=== PATIENT | female | born 1970 | race Caucasian/White ===

== ENCOUNTER 2016-09-16 08:22 | Emergency (ER) | payer OTHER ==
[~2016-09-16] VITALS: Ht 167.6 cm; Wt 65.3 kg
[~2016-09-16 08:22] MED LIST: FLEXERIL10 MG PO; MOTRIN800 MG PO; MULTIVITAMIN1 EAC2 PO
[2016-09-16 09:40] LABS: HEMATOCRIT 43.1 % (36.0-46.0); MCH 32.9 PG (29.0-34.0); MCHC 34.8 G/DL (30.0-36.0); MCV 94.5 FL (83-99); RBC DIS.WIDTH-CV 11.2 % (11.8-14.6); RBC DIS.WIDTH-SD 38.8 % (39-53); RED BLOOD COUNT 4.56 M/uL (3.80-5.20)
[2016-09-16 09:50] LABS: ADD MIUA? YES; BILIRUBIN NEGATIVE; BLOOD NEGATIVE; COLOR STRAW ((YELLOW)); GLUCOSE (STRIP) NEGATIVE; KETONES NEGATIVE; LEUKOCYTES TRACE; NITRITE NEGATIVE; PROTEIN (STRIP) NEGATIVE; SPECIFIC GRAVITY 1.006 (1.000-1.030); UROBILINOGEN 0.2 MG/DL (0.2-1.0)
[2016-09-16 09:52] LABS: CHLORIDE 106 mEq/L (99-109); POTASSIUM 3.9 mEq/L (3.7-5.4); SODIUM 139 mEq/L (136-147)
[2016-09-16 09:54] LABS: GLUCOSE 95 mg/dL (70-99)
[2016-09-16 09:55] LABS: ANION GAP 11 MEQ/L (2-14)
[2016-09-16 09:55] LABS: BACTERIA NONE SEEN /HPF; EPITHELIAL CELLS RARE /HPF; MUCUS NONE SEEN /LPF; RED BLOOD CELLS 0-5 /HPF (0-5); UCUL ADDED? NO; WHITE BLOOD CELLS 0-5 /HPF (0-5)
[2016-09-16 09:56] LABS: TOTAL BILIRUBIN 0.9 mg/dL (0.0-1.0)
[2016-09-16 09:58] LABS: ALKALINE PHOSPHATASE 57 IU/L (3-129); GFR ESTIMATE (CALCULATED) > 59 mL/min/
[2016-09-16 09:59] LABS: UREA NITROGEN (BUN) 10 mg/dL (9-23)
[2016-09-16] MEDS ORDERED: COLACE100 MG PO (10:59)
[2016-09-16] MEDS ORDERED: BENTYL20 MG PO (10:59)
[2016-09-16 11:12] VITALS: BP 142/85
[2016-09-16 11:17] LABS: PLATELET COUNT 161 K/uL (156-360)
== END 2016-09-16 11:13 | disposition home or self-care (01) ==
LOC: EME 08:22 → EXP 08:22
PROVIDERS: Nurse Practitioner Family
DX: K29.70 Gastritis, unspecified, without bleeding (principal); K21.9 Gastro-esophageal reflux disease without esophagitis; K59.00 Constipation, unspecified
CPT/HCPCS: 74176; 80053; 81003; 85027; 99281; 99284

== ENCOUNTER → 2016-10-21 | Outpatient (CLI) | payer OTHER ==
[~2016-10-21] MED LIST changes: +BENTYL20 MG PO; +COLACE100 MG PO
== END | disposition home or self-care (01) ==
LOC: NUC 12:02
DX: R10.11 Right upper quadrant pain (principal)
CPT/HCPCS: 78227; A9537; J2805